=== PATIENT | female | born 1945 | race Hispanic/Latino ===

== ENCOUNTER → 2024-07-24 | Outpatient (CLI) | payer OTHER ==
[~2024-07-24] MED LIST: LOSA50TA64 PO
[2024-07-24 10:25] LABS: CREATININE 0.6 mg/dL (0.5-1.0)
== END | disposition home or self-care (01) ==
LOC: LAB 09:20
PROVIDERS: ATTEND Internal Medicine Gastroenterology
DX: N82.3 Fistula of vagina to large intestine (principal)
CPT/HCPCS: 36415; 82565; 84520

== ENCOUNTER → 2024-08-01 | Outpatient (CLI) | payer OTHER ==
[~2024-08-01] MED LIST changes: +DIATR MEGLU/DIATRIZOATE SODIUM 30 ML BOTTLE ONE; +IOHEXOL 350 MG/ML 100ML INFUS..BTL IV ONE
== END | disposition home or self-care (01) ==
LOC: RAH 09:12
PROVIDERS: ATTEND Surgery
DX: N82.3 Fistula of vagina to large intestine (principal); N32.89 Other specified disorders of bladder
CPT/HCPCS: 74177; Q9963; Q9967

== ENCOUNTER 2024-08-17 10:00 | Inpatient (IN) | payer OTHER ==
[~2024-08-17] VITALS: Ht 152.4 cm; Wt 57.6 kg
[~2024-08-17 10:00] MED LIST changes: -DIATR MEGLU/DIATRIZOATE SODIUM 30 ML BOTTLE ONE; -IOHEXOL 350 MG/ML 100ML INFUS..BTL IV ONE
[2024-08-17 10:37] VITALS: BP 142/59; PULSE 59; RESP 18; TEMP 97.9
[2024-08-17 10:44] LABS: BASOPHILS # (AUTO) 0.02 K/uL (0.00-0.20); BASOPHILS % (AUTO) 0.3 % (0.0-5.0); EOSINOPHILS # (AUTO) 0.14 K/uL (0.00-0.70); EOSINOPHILS % (AUTO) 2.2 % (0.0-8.0); IMMATURE GRANULOCYTE ABSOLUTE 0.02 K/uL (0-1); LYMPHOCYTES # (AUTO) 2.2 K/uL (1.0-4.8); LYMPHOCYTES % (AUTO) 35.2 % (21.0-51.0); MEAN CORPUSCULAR HEMOGLOBIN 30.3 pg (27.0-33.0); MEAN CORPUSCULAR HGB CONC 33.8 g/dL (32.0-36.0); MEAN CORPUSCULAR VOLUME 89.6 fL (79-99); MONOCYTES # (AUTO) 0.4 K/uL (0.1-1.0); MONOCYTES % (AUTO) 6.8 % (3.0-13.0); NEUTROPHILS # (AUTO) 3.5 K/uL (1.8-7.7); NEUTROPHILS % (AUTO) 55.2 % (40.0-77.0); PLATELET COUNT (AUTO) 281 K/uL (130-400); RED BLOOD CELL COUNT(AUTO) 4.13 MIL/uL (4.00-5.50); RED CELL DISTRIBUTION WIDTH 12.7 % (11.0-15.5); WHITE BLOOD COUNT (AUTO) 6.3 K/uL (4.8-10.8)
[2024-08-17 10:57] LABS: ALBUMIN 3.7 g/dL (3.5-5.0); BILIRUBIN,TOTAL 0.6 mg/dL (0.2-1.0); CREATININE 0.7 mg/dL (0.5-1.0); POTASSIUM 4.1 mmol/L (3.5-5.1); TOTAL PROTEIN, SERUM 7.5 g/dL (6.0-8.3)
[2024-08-17 11:01] LABS: INR 0.94 (0.85-1.15); PROTHROMBIN TIME 10.2 SEC (9.6-11.6)
[2024-08-17 11:02] LABS: PARTIAL THROMBOPLASTIN TIME 32.6 SEC (26.3-35.5)
[2024-08-17] MEDS ORDERED: FERR-72 PO (11:13)
[2024-08-17] MEDS ORDERED: DOCU100C33 PO (11:13)
[2024-08-22] VITALS (16 sets, daily range): BP systolic 135–168; BP diastolic 64–79; PULSE 53–81; RESP 14–16; TEMP 97.6–98.1; O2SAT 100
[2024-08-22] MEDS: MEROPENEM 1 GM VIAL ONE (09:55)
[2024-08-22] MEDS: LACTATED RINGERS 1000ML 1,000 ML IV ONE (09:57)
[2024-08-22] MEDS ORDERED: LIDOCAINE PF 100MG/5ML (2%) SYRINGE 5ML ONE (16:21)
[2024-08-22] MEDS ORDERED: SUCCINYLCHOLINE CHLORIDE 20 MG/ML 10 ML VIAL ONE (16:21)
[2024-08-22] MEDS ORDERED: dexaMETHasone SOD PHOSPHATE 10MG/ML 1ML VIAL ONE (16:21)
[2024-08-22] MEDS ORDERED: GLYCOPYRROLATE 0.2 MG/ML 5 ML VIAL ONE (16:22)
[2024-08-22] MEDS ORDERED: ondanSETRON 4MG INJ ONE (16:22)
[2024-08-22] MEDS ORDERED: proPOFol 10 MG/ML 20ML VIAL IV ONE (16:22)
[2024-08-22] MEDS ORDERED: rocuRONium bROMide 10MG/1ML 5ML VL ONE (16:22)
[2024-08-22] MEDS ORDERED: MIDAZOLAM HCL 1 MG/ML 2ML VIAL ONE (16:22)
[2024-08-22] MEDS ORDERED: NEOSTIGMINE METHYLSULFATE 1MG/ML IV ONE (16:22)
[2024-08-22] MEDS ORDERED: FENTanyl CITRate PF 50 MCG/1 ML 2ML VIAL ONE ×4 (16:23→19:15)
[2024-08-22] MEDS ORDERED: ALBUMIN (HUMAN) 5% 250 ML IV ONE (16:29)
[2024-08-22] MEDS ORDERED: ketaMINE 50MG/ML SYRINGE 50 MG/ML DISP.SYRIN ONE (16:29)
[2024-08-22] MEDS ORDERED: hydroMORPHone 0.5 MG SYG (0.5MG/0.5ML) IVP PRN (16:30)
[2024-08-22] MEDS: EPINEPHrine PF 1MG (1:1,000) 1 MG/ML AMP ONE (17:19)
[2024-08-22] MEDS: LIDOCAINE HCL 1% 20 ML VIAL ONE (17:19)
[2024-08-22] MEDS: LIDOCAINE HCL 1% 10 ML VIAL ONE (17:19)
[2024-08-22] MEDS: BUPIvacaine/PF 0.5% 30ML VIAL ONE (17:19)
[2024-08-22] MEDS: SUGAMMADEX SODIUM 200 MG/2 ML VIAL IV ONE (18:15)
[2024-08-22] MEDS: FAMOTIDINE 20MG VIAL IV ONE (18:16)
[2024-08-22] MEDS: INDOCYANINE GREEN 25 MG VIAL IJ ONE (20:45)
[2024-08-22] MEDS ORDERED: FENTanyl CITRate PF 50 MCG/1 ML 5ML AMP IV ONE (20:59)
[2024-08-22] MEDS: acetaMINOPHEN 100 ML ONE (21:04)
[2024-08-22] MEDS: acetaMINOPHEN 325 MG TAB PO SCH (22:30)
[2024-08-22] MEDS: ondanSETRON 4MG INJ ONE (22:57)
[2024-08-22] MEDS: MEPERIDINE-PF 25 MG/ML SYG ONE ×2 (22:58→23:12)
[2024-08-23] VITALS (16 sets, daily range): BP systolic 137–177; BP diastolic 57–80; PULSE 72–94; RESP 16–20; TEMP 97.6–99.6; O2SAT 96–98
[2024-08-23] MEDS: LACTATED RINGERS 1000ML 1,000 ML IV SCH (00:38)
[2024-08-23] MEDS: ondanSETRON 4MG INJ IVP PRN (00:42)
[2024-08-23] MEDS ORDERED: MAGNESIUM 2GM PREMIX 50ML 50 ML IV PRN (02:00)
[2024-08-23] MEDS: hydrALAZine 20MG/ML VIAL IV PRN (02:09)
[2024-08-23] MEDS: hydroMORPHone 0.5 MG SYG (0.5MG/0.5ML) IVP PRN (02:51)
[2024-08-23 04:11] LABS: BASOPHILS # (AUTO) 0.01 K/uL (0.00-0.20); BASOPHILS % (AUTO) 0.1 % (0.0-5.0); IMMATURE GRANULOCYTE ABSOLUTE 0.03 K/uL (0-1); LYMPHOCYTES # (AUTO) 0.7 K/uL (1.0-4.8); LYMPHOCYTES % (AUTO) 5.5 % (21.0-51.0); MEAN CORPUSCULAR HEMOGLOBIN 30.6 pg (27.0-33.0); MEAN CORPUSCULAR VOLUME 87.4 fL (79-99); MONOCYTES # (AUTO) 1.2 K/uL (0.1-1.0); MONOCYTES % (AUTO) 9.5 % (3.0-13.0); NEUTROPHILS # (AUTO) 10.3 K/uL (1.8-7.7); NEUTROPHILS % (AUTO) 84.7 % (40.0-77.0); PLATELET COUNT (AUTO) 246 K/uL (130-400); RED BLOOD CELL COUNT(AUTO) 3.89 MIL/uL (4.00-5.50); RED CELL DISTRIBUTION WIDTH 12.6 % (11.0-15.5); WHITE BLOOD COUNT (AUTO) 12.2 K/uL (4.8-10.8)
[2024-08-23 04:17] LABS: CREATININE 0.8 mg/dL (0.5-1.0); POTASSIUM 3.2 mmol/L (3.5-5.1)
[2024-08-23] MEDS: PoTASSium chloRIDE 20MEQ/100ML 100 ML IV PRN (04:42)
[2024-08-23] MEDS: FAMOTIDINE 20MG VIAL IV SCH (08:24)
[2024-08-23] MEDS: ENOXAPARIN SODIUM 40 MG/0.4 ML SYRINGE SQ SCH (08:24)
[2024-08-23] MEDS ORDERED: GLUCAGON 1MG KIT 1 MG ML IM PRN (12:30)
[2024-08-23] MEDS ORDERED: DEXTROSE 50%-WATER 50 ML DISP.SYRIN IV PRN (12:30)
[2024-08-23] MEDS: INSULIN humuLIN R 100 UNIT/ML 3ML SQ SCH (16:30)
[2024-08-23] MEDS: FERROUS SULFATE 325 MG TABLET.DR PO SCH (21:37)
[2024-08-23] MEDS: doCUSate SODIUM 100 MG CAP PO SCH (21:37)
[2024-08-24] VITALS (9 sets, daily range): BP systolic 151–171; BP diastolic 69–86; PULSE 76–95; RESP 17–20; TEMP 97.4–99.1; O2SAT 96–98
[2024-08-24 03:31] LABS: BASOPHILS # (AUTO) 0.02 K/uL (0.00-0.20); BASOPHILS % (AUTO) 0.2 % (0.0-5.0); IMMATURE GRANULOCYTE ABSOLUTE 0.03 K/uL (0-1); LYMPHOCYTES # (AUTO) 2.5 K/uL (1.0-4.8); LYMPHOCYTES % (AUTO) 20.7 % (21.0-51.0); MEAN CORPUSCULAR HEMOGLOBIN 30.1 pg (27.0-33.0); MEAN CORPUSCULAR HGB CONC 34.2 g/dL (32.0-36.0); MONOCYTES # (AUTO) 0.9 K/uL (0.1-1.0); MONOCYTES % (AUTO) 7.4 % (3.0-13.0); NEUTROPHILS # (AUTO) 8.7 K/uL (1.8-7.7); NEUTROPHILS % (AUTO) 71.5 % (40.0-77.0); PLATELET COUNT (AUTO) 219 K/uL (130-400); RED BLOOD CELL COUNT(AUTO) 3.75 MIL/uL (4.00-5.50); RED CELL DISTRIBUTION WIDTH 13.1 % (11.0-15.5); WHITE BLOOD COUNT (AUTO) 12.2 K/uL (4.8-10.8)
[2024-08-24 03:42] LABS: CREATININE 0.7 mg/dL (0.5-1.0); POTASSIUM 3.3 mmol/L (3.5-5.1)
[2024-08-24] MEDS ORDERED: LACTATED RINGERS 1000ML IV SCH (08:30)
[2024-08-24] MEDS ORDERED: hydrALAZine 20MG/ML VIAL IV PRN (09:00)
[2024-08-24] MEDS: metoCLOPRAmide 10 MG/2 ML VIAL IV ONE (09:23)
[2024-08-24] MEDS: PoTASSium chloRIDE 20MEQ ER 20 MEQ ERTAB PO PRN (09:24)
[2024-08-24] MEDS: dexaMETHasone 4 MG TAB PO ONE (09:24)
[2024-08-24] MEDS: LoSARTan 50 MG TABLET PO SCH (09:24)
[2024-08-24] MEDS: traMADol HCL 50 MG TABLET PO PRN (09:24)
[2024-08-24] MEDS ORDERED: PoTASSium chloRIDE 20MEQ/100ML 100 ML IV PRN (16:30)
[2024-08-24] MEDS: DIPHENOXYLATE HCL/ATROPINE 2.5/0.025 MG TAB PO SCH (21:00)
[2024-08-25 04:01] VITALS: BP 143/86; PULSE 80; RESP 16; TEMP 98.2
[2024-08-25 04:54] LABS: BASOPHILS # (AUTO) 0.02 K/uL (0.00-0.20); BASOPHILS % (AUTO) 0.2 % (0.0-5.0); EOSINOPHILS # (AUTO) 0.07 K/uL (0.00-0.70); EOSINOPHILS % (AUTO) 0.6 % (0.0-8.0); HEMATOCRIT 30.6 % (36-48); IMMATURE GRANULOCYTE ABSOLUTE 0.05 K/uL (0-1); LYMPHOCYTES # (AUTO) 2.4 K/uL (1.0-4.8); LYMPHOCYTES % (AUTO) 21.2 % (21.0-51.0); MEAN CORPUSCULAR HGB CONC 34.3 g/dL (32.0-36.0); MEAN CORPUSCULAR VOLUME 87.4 fL (79-99); MONOCYTES % (AUTO) 8.7 % (3.0-13.0); NEUTROPHILS # (AUTO) 7.8 K/uL (1.8-7.7); NEUTROPHILS % (AUTO) 68.9 % (40.0-77.0); PLATELET COUNT (AUTO) 235 K/uL (130-400); WHITE BLOOD COUNT (AUTO) 11.4 K/uL (4.8-10.8)
[2024-08-25 05:05] LABS: CREATININE 0.6 mg/dL (0.5-1.0); POTASSIUM 3.1 mmol/L (3.5-5.1)
[2024-08-25] MEDS: PoTASSium chl 10% ELIXIR 20MEQ 20 MEQ/15 ML UDCUP PO PRN (05:47)
[2024-08-25 08:00] VITALS: BP 153/81; PULSE 82; RESP 16; TEMP 97.7; O2SAT 98
[2024-08-25] MEDS: DIPHENOXYLATE HCL/ATROPINE 2.5/0.025 MG TAB PO SCH (09:31)
[2024-08-25] MEDS ORDERED: metoCLOPRAmide 10 MG/2 ML VIAL IVP PRN (10:00)
[2024-08-25] MEDS: OXYcodONE HCL 5 MG TAB PO PRN (10:47)
[2024-08-25 11:42] VITALS: BP 141/66; PULSE 87; RESP 18; TEMP 98.1
[2024-08-25 16:00] VITALS: BP 150/67; PULSE 79; RESP 16; TEMP 97.7
[2024-08-25 20:00] VITALS: BP 141/76; PULSE 73; RESP 18; TEMP 98.6
[2024-08-26] VITALS (7 sets, daily range): BP systolic 124–153; BP diastolic 54–84; PULSE 63–80; RESP 16–19; TEMP 97.6–98.4; O2SAT 95
[2024-08-26 06:15] LABS: BASOPHILS # (AUTO) 0.02 K/uL (0.00-0.20); BASOPHILS % (AUTO) 0.3 % (0.0-5.0); EOSINOPHILS # (AUTO) 0.33 K/uL (0.00-0.70); EOSINOPHILS % (AUTO) 4.4 % (0.0-8.0); HEMATOCRIT 28.3 % (36-48); IMMATURE GRANULOCYTE ABSOLUTE 0.02 K/uL (0-1); LYMPHOCYTES % (AUTO) 27.2 % (21.0-51.0); MEAN CORPUSCULAR HGB CONC 33.9 g/dL (32.0-36.0); MEAN CORPUSCULAR VOLUME 88.4 fL (79-99); MONOCYTES # (AUTO) 0.7 K/uL (0.1-1.0); MONOCYTES % (AUTO) 9.1 % (3.0-13.0); NEUTROPHILS # (AUTO) 4.4 K/uL (1.8-7.7); NEUTROPHILS % (AUTO) 58.7 % (40.0-77.0); PLATELET COUNT (AUTO) 241 K/uL (130-400); WHITE BLOOD COUNT (AUTO) 7.5 K/uL (4.8-10.8)
[2024-08-26 06:25] LABS: ALBUMIN 2.7 g/dL (3.5-5.0); BILIRUBIN,TOTAL 0.7 mg/dL (0.2-1.0); CREATININE 0.7 mg/dL (0.5-1.0); POTASSIUM 3.5 mmol/L (3.5-5.1); TOTAL PROTEIN, SERUM 5.9 g/dL (6.0-8.3)
[2024-08-27 04:15] VITALS: BP 137/72; PULSE 64; RESP 17; TEMP 98.2
[2024-08-27 04:46] LABS: BASOPHILS # (AUTO) 0.02 K/uL (0.00-0.20); BASOPHILS % (AUTO) 0.3 % (0.0-5.0); EOSINOPHILS # (AUTO) 0.34 K/uL (0.00-0.70); EOSINOPHILS % (AUTO) 4.6 % (0.0-8.0); HEMATOCRIT 28.9 % (36-48); IMMATURE GRANULOCYTE ABSOLUTE 0.03 K/uL (0-1); LYMPHOCYTES # (AUTO) 2.7 K/uL (1.0-4.8); LYMPHOCYTES % (AUTO) 36.7 % (21.0-51.0); MEAN CORPUSCULAR HEMOGLOBIN 30.5 pg (27.0-33.0); MEAN CORPUSCULAR HGB CONC 34.6 g/dL (32.0-36.0); MEAN CORPUSCULAR VOLUME 88.1 fL (79-99); MONOCYTES # (AUTO) 0.7 K/uL (0.1-1.0); MONOCYTES % (AUTO) 9.5 % (3.0-13.0); NEUTROPHILS # (AUTO) 3.6 K/uL (1.8-7.7); NEUTROPHILS % (AUTO) 48.5 % (40.0-77.0); PLATELET COUNT (AUTO) 247 K/uL (130-400); RED BLOOD CELL COUNT(AUTO) 3.28 MIL/uL (4.00-5.50); RED CELL DISTRIBUTION WIDTH 12.9 % (11.0-15.5); WHITE BLOOD COUNT (AUTO) 7.4 K/uL (4.8-10.8)
[2024-08-27 04:59] LABS: ALBUMIN 2.7 g/dL (3.5-5.0); BILIRUBIN,TOTAL 0.7 mg/dL (0.2-1.0); CREATININE 0.6 mg/dL (0.5-1.0); POTASSIUM 3.6 mmol/L (3.5-5.1)
[2024-08-27 08:00] VITALS: O2SAT 96
[2024-08-27 12:00] VITALS: BP 153/71; PULSE 80; RESP 16; TEMP 98.4
[2024-08-27 16:00] VITALS: BP 141/73; PULSE 70; RESP 16; TEMP 97.2
== END 2024-08-27 18:10 | disposition home or self-care (01) | DRG 330 ==
LOC: DAHIP 08-22 08:56 → 4CH 08-22 23:49
PROVIDERS: ADMIT Surgery; ATTEND Surgery
PROC: 8E0Y4CZ Robotic Assisted Procedure of Lower Extremity, Percutaneous Endoscopic Approach (ICD-10-PCS; principal; 2024-08-22 16:35)
PROC: 0DN84ZZ Release Small Intestine, Percutaneous Endoscopic Approach (ICD-10-PCS; 2024-08-22 16:35)
PROC: 0DTP4ZZ Resection of Rectum, Percutaneous Endoscopic Approach (ICD-10-PCS; 2024-08-22 16:35)
PROC: 0D1B0Z4 Bypass Ileum to Cutaneous, Open Approach (ICD-10-PCS; 2024-08-22 16:35)
PROC: 0DJD8ZZ Inspection of Lower Intestinal Tract, Via Natural or Artificial Opening Endoscopic (ICD-10-PCS; 2024-08-22 16:35)
PROC: 0DUU47Z Supplement Omentum with Autologous Tissue Substitute, Percutaneous Endoscopic Approach (ICD-10-PCS; 2024-08-22 16:35)
DX: N82.3 Fistula of vagina to large intestine (principal); E87.1 Hypo-osmolality and hyponatremia; I10 Essential (primary) hypertension; Z82.49 Family history of ischemic heart disease and other diseases of the circulatory system; Z90.710 Acquired absence of both cervix and uterus; D72.829 Elevated white blood cell count, unspecified; D64.9 Anemia, unspecified; E87.6 Hypokalemia; R73.9 Hyperglycemia, unspecified
CPT/HCPCS: 36415; 45330; 80048; 80053; 82306; 82570; 82607; 82948; 85025; 85610; 85730; 86850; 86900; 86901; 93005; A4344; G0378; J0171; J0330; J0360; J1100; J1171; J1650; J1815; J2003; J2175; J2185; J2250; J2405; J2704; J2710; J2765; J3010; J3480; J3490; J7030; J7120; J8540; P9045; A4215; A4216; A4221; A4222; A4223; A4600; A4649; A4663; A4930; A6260; C1762; C1769; J0665

== ENCOUNTER → 2024-10-30 | Outpatient (CLI) | payer OTHER ==
[~2024-10-30] MED LIST changes: +FERR-72 PO
--- NOTE | 2024-10-30 13:38 | HMCIMG ---
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 Barium enema study cannot be performed due to patient's underlying condition and cannot hold the barium enema tip despite multiple attempts.. A nonspecific bowel gas pattern is seen. Fecal material is seen in the colon. Degenerative changes of the thoracolumbar spine are noted. IMPRESSION: 1. Findings as described above.
== END | disposition home or self-care (01) ==
LOC: RAH 09:36
PROVIDERS: ATTEND Surgery
DX: M47.815 Spondylosis without myelopathy or radiculopathy, thoracolumbar region (principal); Z93.2 Ileostomy status
CPT/HCPCS: 74018